=== PATIENT | female | born 1935 | race Caucasian/White ===

== ENCOUNTER 2018-02-14 14:51 | Observation (INO) | payer MEDICARE ==
[~2018-02-14] VITALS: Ht 160 cm; Wt 68.9 kg
[~2018-02-14 14:51] MED LIST: LEVOTHYROXINE; MULTIVITAMIN1 EAC1; Z.0.CARTIA XT180 MG; Z.0.CRESTOR20 MG
[2018-02-14 16:09] LABS: BASOPHILS # (AUTO) 0.1 (0.0-0.1); BASOPHILS % 0.9 % (0.0-1.0); EOSINOPHILS # (AUTO) 0.8 (0.0-0.4); EOSINOPHILS % 7.7 % (0.0-6.0); HEMATOCRIT 38.3 % (34.2-44.1); HEMOGLOBIN 12.7 g/dL (12.0-16.0); LYMPHOCYTES # (AUTO) 3.8 (1.0-3.2); LYMPHOCYTES % 37.1 % (18.0-39.1); MEAN CORPUSCULAR HEMOGLOBIN 32.6 pg (28-32); MEAN CORPUSCULAR HGB CONC 33.2 g/dL (31-35); MEAN CORPUSCULAR VOLUME 98.5 fL (81-99); MONOCYTES # (AUTO) 1.1 (0.2-0.8); MONOCYTES % 10.4 % (4.4-11.3); NEUTROPHILS # (AUTO) 4.4 (2.1-6.9); NEUTROPHILS % 43.6 % (38.7-80.0); PLATELET COUNT 303 x10e3/uL (140-360); RED BLOOD COUNT 3.89 x10e6/uL (3.6-5.1); RED CELL DISTRIBUTION WIDTH 13.2 % (11.7-14.4)
[2018-02-14 16:19] LABS: INR 1.16; PROTHROMBIN TIME 13.9 seconds (11.9-14.5)
[2018-02-14 16:20] LABS: PARTIAL THROMBOPLASTIN TIME 30.7 seconds (23.8-35.5)
[2018-02-14 16:31] LABS: ALANINE AMINOTRANSFERASE 12 IU/L (0-55); ALBUMIN 3.3 g/dL (3.5-5.0); ALBUMIN/GLOBULIN RATIO 0.8 (0.8-2.0); ALKALINE PHOSPHATASE 68 IU/L (40-150); AMYLASE 47 U/L (25-125); ANION GAP 12.5 mmol/L (8-16); BLOOD UREA NITROGEN 8 mg/dL (7-26); BUN/CREATININE RATIO 9 (6-25); CALCIUM 9.3 mg/dL (8.4-10.2); CARBON DIOXIDE 28 mmol/L (22-29); CHLORIDE 103 mmol/L (98-107); CREATINE KINASE 58 IU/L (29-168); CREATININE, SERUM 0.88 mg/dL (0.57-1.11); EST GLOMERULAR FILTRATION RATE > 60 ML/MIN (60-); GLUCOSE 87 mg/dL (74-118); LIPASE 23 U/L (8-78); POTASSIUM 3.5 mmol/L (3.5-5.1); SODIUM 140 mmol/L (136-145)
[2018-02-14 16:33] LABS: B-TYPE NATRIURETIC PEPTIDE2 42.4 pg/mL (0-100)
--- NOTE | 2018-02-14 17:01 | Diagnostic Imaging Report ---
PROCEDURE: A single AP view of the chest. COMPARISON: 10/20/11 INDICATIONS: CHEST PAIN FINDINGS: Lines/tubes: None. Lungs: The lungs are well inflated. Mildly increased peripheral interstitial lung markings, suggestive of fibrotic changes. Bilateral nodular densities likely represent calcified granulomas. Pleura: There is no pleural effusion or pneumothorax. Heart and mediastinum: The heart and the mediastinum are unremarkable. Bones: No acute bony abnormality. IMPRESSION: Increased bilateral peripheral interstitial lung markings, suggestive of fibrotic changes. No definite focal consolidations. Bilateral nodular densities, likely calcified granulomas. Dictated by: Pan Claudio M.D. on 02/14/2018 at 17:04 Electronically approved by: Pan Claudio M.D. on 02/14/2018 at 17:04
--- NOTE | 2018-02-14 18:25 | Diagnostic Imaging Report ---
EXAM: CT Chest WITH contrast 02/14/2018 5:14 PM INDICATION: \S\chest pain, Orders per Dr. Zack Diana MD COMPARISON: None TECHNIQUE: Chest was scanned utilizing a multidetector helical scanner from the lung apex through the level of the adrenal glands without administration of IV contrast. Coronal and sagittal reformations were obtained. Routine protocol was performed. IV CONTRAST: 100 mL of Isovue-370 COMPLICATIONS: None RADIATION DOSE: Total DLP: 507.35 mGy*cm Estimated effective dose: (DLP x 0.014 x size factor) mSv CTDIvol has been reviewed. It is below the limits set by the Radiation Protocol Committee (RPC). FINDINGS: LINES/ TUBES: None. LUNGS AND AIRWAYS: Increased bilateral peripheral peripheral nodular lung markings, consistent with fibrotic changes. Mild posterior bibasilar honeycombing. Mild pulmonary vascular congestion. Right upper lobe calcified granuloma (series 3, image 43). Airways are normal. PLEURA: The pleural spaces are clear. HEART AND MEDIASTINUM: The thyroid gland is normal. No axillary lymphadenopathy. Subcentimeter mediastinal lymph nodes are seen, measuring up to 0.8 cm. 0.9 cm right hilar lymph node (series 2, image 50). The heart is normal in size.. There is no pericardial effusion. UPPER ABDOMEN: Cholecystectomy. BONES: The visualized bony thorax is within normal limits. SOFT TISSUES: Unremarkable. IMPRESSION: Fibrotic changes of the lungs. Mild vascular congestion. No definite focal consolidation. Nonspecific subcentimeter mediastinal and right hilar lymph nodes, likely reactive. Signed by: Dr. Pan Claudio MD on 02/14/2018 6:21 PM
[2018-02-14] MEDS ORDERED: TEMAZEPAM 15 MG CAP PO PRN (19:00)
[2018-02-14] MEDS ORDERED: SODIUM CHLORIDE 0.9% 50ML 50 ML ONE (19:25)
[2018-02-14] MEDS ORDERED: IOPAMIDOL 370 MG/ML 200 ML INFUS..BTL INJ ONE (19:26)
[2018-02-14 19:28] LABS: FREE THYROXINE INDEX 0.8712 (1.4-3.8); THYROID STIMULATING HORMONE 27.444 uIU/mL (0.350-4.940)
[2018-02-14 19:43] VITALS: BP 154/67
[2018-02-14 20:00] VITALS: BP 154/67
--- NOTE | 2018-02-14 21:10 | History and Physical ---
An 82-year-old female with history of dementia who comes in with chest pain. HISTORY OF PRESENTING ILLNESS: Ms. Hathaway comes in with a history of dementia who was in her usual state of health until yesterday the patient apparently had chest pain. Old history is gotten from the medical records. The patient has dementia. The patient apparently started to have chest pain sensation and vomited. Her family was concerned. The patient was diaphoretic and also and sweating. The patient was brought into the emergency room and admitted for rule out chest pain. PAST MEDICAL HISTORY: Significant for dementia. She does not take any medications. PAST SURGICAL HISTORY: History of cholecystectomy, history of hysterectomy. ALLERGIES: SUCCINYLCHOLINE. MEDICATIONS: None reported at this time. FAMILY HISTORY: Noncontributory. SOCIAL HISTORY: No ETOH, no IV drug abuse. She lives with family. REVIEW OF SYSTEMS: Unable to obtain because of the patient's dementia. PHYSICAL EXAMINATION GENERAL: The patient is alert and oriented x1. She knows who she is and not sure where she is. HEENT: Normocephalic, atraumatic. Pupils react to light and accommodation. CVS: S1 and S2 normal. Regular rate and rhythm. ABDOMEN: Nontender, nondistended. EXTREMITIES: No cyanosis, clubbing or edema. EKG with no acute process present. Chest x-ray with no infiltrates, no fractures present either. LABORATORY DATA: White count was normal at 10.14, hemoglobin 12.7, hematocrit 38.6. Chemistries: Show sodium 140, potassium 3.5, GFR of 60. Troponin was less than 0.001. BNP was 42.4. CT of the chest shows fibrotic changes in the lungs with mild vascular congestion with no definite focal consolidation, nonspecific substernal mediastinal and right hilar lymph node. No PE seen either. The patient is admitted for chest pain. Will go ahead and admit her. Will trend the troponins. Will do labs tomorrow. Will check her thyroid and also check her echocardiogram today. Further recommendations depending on clinical course. If troponins are negative, the patient can be sent outside for outpatient stress test. Job#: [id number]
[2018-02-15] VITALS: BP 144/63
[2018-02-15 01:09] LABS: CREATINE KINASE 129 IU/L (29-168)
[2018-02-15 04:00] VITALS: BP 117/55
[2018-02-15 06:10] LABS: BASOPHILS # (AUTO) 0.1 (0.0-0.1); BASOPHILS % 1.1 % (0.0-1.0); EOSINOPHILS # (AUTO) 0.9 (0.0-0.4); EOSINOPHILS % 9.3 % (0.0-6.0); HEMATOCRIT 37.9 % (34.2-44.1); HEMOGLOBIN 12.5 g/dL (12.0-16.0); LYMPHOCYTES # (AUTO) 3.1 (1.0-3.2); LYMPHOCYTES % 33.3 % (18.0-39.1); MEAN CORPUSCULAR HEMOGLOBIN 32.6 pg (28-32); MONOCYTES % 10.2 % (4.4-11.3); NEUTROPHILS # (AUTO) 4.3 (2.1-6.9); PLATELET COUNT 298 x10e3/uL (140-360); RED BLOOD COUNT 3.83 x10e6/uL (3.6-5.1); RED CELL DISTRIBUTION WIDTH 13.3 % (11.7-14.4)
[2018-02-15 07:07] LABS: ANION GAP 12.7 mmol/L (8-16); BLOOD UREA NITROGEN 9 mg/dL (7-26); BUN/CREATININE RATIO 12 (6-25); CALCIUM 9.1 mg/dL (8.4-10.2); CARBON DIOXIDE 26 mmol/L (22-29); CHLORIDE 108 mmol/L (98-107); CREATININE, SERUM 0.75 mg/dL (0.57-1.11); EST GLOMERULAR FILTRATION RATE > 60 ML/MIN (60-); GLUCOSE 82 mg/dL (74-118); POTASSIUM 3.7 mmol/L (3.5-5.1); SODIUM 143 mmol/L (136-145)
[2018-02-15 07:25] LABS: CHOL/HDL RATIO 6.3 (3.0-3.6)
[2018-02-15 07:26] VITALS: BP 162/67
[2018-02-15 07:53] LABS: CREATINE KINASE MB 2.6 ng/mL (0-5.0)
[2018-02-15] MEDS ORDERED: ASPIRIN 325 MG TAB EC PO SCH (09:00)
[2018-02-15 11:26] VITALS: BP 139/58
[2018-02-15] MEDS ORDERED: AMLODIPINE BESYL5 MG PO (13:55)
[2018-02-15] MEDS ORDERED: RISPERDAL1 MG PO (13:58)
== END 2018-02-15 14:20 | disposition home or self-care (01) ==
LOC: ER 14:51 → ERHOLD 17:22 → IMCU 17:33
PROVIDERS: ADMIT Family Medicine; ATTEND Family Medicine
DX: R07.9 Chest pain, unspecified (principal); E78.5 Hyperlipidemia, unspecified; F03.90 Unspecified dementia, unspecified severity, without behavioral disturbance, psychotic disturbance, mood disturbance, and anxiety; Z88.8 Allergy status to other drugs, medicaments and biological substances
CPT/HCPCS: 36415 ×2; 71045; 71260; 80048; 80053; 80061; 82150; 82550 ×2; 82553 ×2; 83605; 83690; 83735; 83880; 84436; 84443; 84479; 84484 ×2; 85025 ×2; 85610; 85730; 93005; 93306; 99284; G0378 ×2; Q9967